=== PATIENT | female | born 1980 | race Caucasian/White ===

== ENCOUNTER 2017-10-09 21:56 | Emergency (ER) | payer BC ==
[~2017-10-09] VITALS: Ht 165.1 cm; Wt 67.1 kg
[~2017-10-09 21:56] MED LIST: KEPPRA500 MG PO; TOPAMAX25 MG PO
== END 2017-10-09 23:53 | disposition home or self-care (01) ==
LOC: ER 21:56
DX: T88.7XXA Unspecified adverse effect of drug or medicament, initial encounter (principal); G93.9 Disorder of brain, unspecified
CPT/HCPCS: 99282